=== PATIENT | female | born 1940 | race Caucasian/White ===

== ENCOUNTER 2017-02-21 10:31 | Emergency (ER) | payer MEDICARE, OTHER ==
[2017-02-21] MEDS ORDERED: Dexamethasone 10 MG/ML VIAL ONE (10:40)
--- NOTE | 2017-02-21 11:33 | RAD ---
TWO VIEWS RIGHT FOREARM: Comparison: None. History: Patient tripped over a curb and fell on arm, right arm pain. FINDINGS: Two views of the right forearm shows no evidence of acute fracture or dislocation. No degenerative c hanges are seen. Mild soft tissue swelling is present. IMPRESSION: Unremarkable exam. POS: [facility]
--- NOTE | 2017-02-21 11:35 | RAD ---
RIGHT WRIST FOUR VIEWS: History: Fall, right wrist injury. FINDINGS: Scaphoid waste is intact. No acute fracture or dislocation are apparent. Osteoarthritic changes are most pronounced at the lateral aspect of the wrist. IMPRESSION: Osteoarthritis. No acute osseous abnormalities are demonstrated. POS: [facility]
--- NOTE | 2017-02-21 11:36 | CT ---
CT HEAD NONCONTRAST: History: Fall, head injury. FINDINGS: There is no evidence of acute intracranial hemorrhage or infarct. The ventricles appear normal in si ze, shape, and position. There is no mass effect or shift of midline structures. Visualized paranasa l sinuses remain well aerated. IMPRESSION: No acute intracranial abnormality demonstrated. POS: [facility]
[2017-02-21] MEDS ORDERED: Acetaminophen/Codeine 30-300mg Tablet ONE (11:43)
== END 2017-02-21 11:50 | disposition home or self-care (01) ==
LOC: MADERS 10:31
DX: S60.211A Contusion of right wrist, initial encounter (principal); S00.83XA Contusion of other part of head, initial encounter; I25.10 Atherosclerotic heart disease of native coronary artery without angina pectoris; I48.91 Unspecified atrial fibrillation; E78.5 Hyperlipidemia, unspecified; I10 Essential (primary) hypertension; Z79.01 Long term (current) use of anticoagulants; Z79.899 Other long term (current) drug therapy; W01.10XA Fall on same level from slipping, tripping and stumbling with subsequent striking against unspecified object, initial encounter
CPT/HCPCS: 70450; J1100